=== PATIENT | male | born 1990 | race Hispanic/Latino ===

== ENCOUNTER 2020-04-30 09:49 | Emergency (ER) | payer SELFPAY ==
[2020-04-30] MEDS ORDERED: ONDANSETRON INJ 4 MG/2 ML VIAL IV ONE (09:55)
[2020-04-30] MEDS ORDERED: KETOROLAC TROMETHAMINE INJ 30 MG/ML VIAL IV ONE (09:55)
[2020-04-30] MEDS ORDERED: MORPHINE SULFATE INJ 10 MG/ML VIAL IV ONE (09:55)
[2020-04-30 09:58] VITALS: TEMP 96.8
[2020-04-30] MEDS ORDERED: SODIUM CHLORIDE 0.9% 1000ML 1,000 ML IVS PRN (10:00)
--- NOTE | 2020-04-30 10:07 | ED.PDOC ---
History of Present Illness - General Chief Complaint: Abdominal Pain Stated Complaint: right testical and RLQ abd pain Time Seen by Provider: 04/30/20 09:54 Source: patient, RN notes reviewed, Vital Signs reviewed Exam Limitations: no limitations - History of Present Illness Initial Comments: 29 y/o male has had several days of worsening pain in his testicle, R side and difficulty urinating. He reports not having a BM in 3 days or so. No f/c, n/v/d. Timing/Duration: other - severe for 2 days Quality: severe Onset Location: RLQ, right flank, scrotal Radiation: right flank, groin, scrotal Activites at Onset: none Improving Factors: rest Worsening Factors: other - urinating Associated Symptoms: dysuria Allergies/Adverse Reactions: Allergies NO KNOWN ALLERGY Allergy (Verified 04/30/20 09:59) Home Medications: Ambulatory Orders NK 04/30/20 Review of Systems - Review of Systems Constitutional: States: no symptoms reported EENTM: States: no symptoms reported Respiratory: States: no symptoms reported Cardiology: States: no symptoms reported Gastrointestinal/Abdominal: States: no symptoms reported Genitourinary: States: see HPI, pain Musculoskeletal: States: no symptoms reported, back pain Skin: States: no symptoms reported Neurological: States: no symptoms reported Past Medical History (General) - Patient Medical History Hx Seizures: No Hx Asthma: No Hx of COPD: No Hx Diabetes: No Hx Cancer: No - Vaccination History Hx Tetanus, Diphtheria Vaccination: No Hx Influenza Vaccination: No Hx Pneumococcal Vaccination: No Immunizations Up to Date: No - Social History Hx Tobacco Use: Yes Hx Alcohol Use: No Hx Substance Use: Yes - occ marijuana Hx Substance Use Treatment: No Hx Depression: Yes Family Medical History - Family History Mother Family History: Unknown Physical Exam - Physical Exam General Appearance: Alert, Obvious distress Eyes, Ears, Nose, Throat Exam: PERRL/EOMI, normal ENT inspection, pharynx normal Neck: non-tender, full range of motion, supple Cardiovascular/Respiratory: regular rate, rhythm, no M/R/G, no JVD, normal breath sounds, no respiratory distress Gastrointestinal/Abdominal: normal bowel sounds, soft Back Exam: CVA tenderness (R) Extremity: normal range of motion, non-tender, normal inspection, no pedal edema Neurologic: clin asst II-XII nml as tested, no motor/sensory deficits, alert, normal mood/affect, oriented x 3 Skin Exam: normal color, warm/dry Progress - Progress Progress: 04/30/20 10:40 is much better after meds. Kidney stone at [facility] Departure - Departure Clinical Impression: Ureteric stone, Flank pain Disposition: Discharge to Home or Self Care Condition: Good Departure Forms: ED Discharge - Pt. Copy, Patient Portal Self Enrollment Instructions: DI for Abdominal Pain-Adult, Kidney Stones (DC) Home Medications: Ambulatory Orders NK 04/30/20
--- NOTE | 2020-04-30 10:34 | CT ---
EXAM DESCRIPTION: Abdoment/Pelvis w/o Contrast CLINICAL HISTORY: 29 years Male, R flank pain COMPARISON: None. TECHNIQUE: Transaxial images were obtained without intravenous contrast media. Sagittal and coronal reconstruction was performed.This exam was performed according to our departmental dose-optimization program, which includes automated exposure control, adjustment of the mA and/or kV according to patient size and/or use of iterative reconstruction technique. FINDINGS: The lung bases are clear. The liver and spleen are normal in appearance. No biliary ductal dilatation is observed. The gallbladder is normal in appearance. No adrenal masses are detected. The pancreas is normal in appearance. Imaging of the kidneys reveals evidence of a small cyst in the upper pole the patient's left kidney measuring 1.13 cm in diameter. Hydronephrosis is observed in the right kidney. A tiny punctate 2.3 mm diameter calculus is observed in the midpole of the patient's right kidney. Dilatation of the ureter is observed to the level of the ureterovesical junction. The ureter is obstructed by a 4.8 mm diameter calculus. No inguinal region abnormality is seen. No free pelvic fluid is observed. The appendix is identified and is normal in appearance. No bone abnormality is detected. IMPRESSION: 1. Right-sided hydronephrosis is observed with obstruction of the distal right ureter at the level of the ureteral vesicle junction by 4.8 mm diameter calculus. Electronically signed by: Christiano Dennis MD 04/30/2020 10:32 AM CDT
[2020-04-30 11:32] VITALS: BP 136/89; O2SAT 99
== END 2020-04-30 11:10 | disposition home or self-care (01) ==
LOC: ER 09:49
DX: N13.2 Hydronephrosis with renal and ureteral calculous obstruction (principal); N50.811 Right testicular pain; F32.9 Major depressive disorder, single episode, unspecified; Z87.891 Personal history of nicotine dependence
CPT/HCPCS: 36415; 74176; 80048; 85025; J1885; J2270; J2405; J7030